=== PATIENT | female | born 1975 | race African-American/Black ===

== ENCOUNTER → 2016-09-04 | Outpatient (REF) | payer BC, OTHER | LOC: M SFHCPLAZ 09:50 | PROVIDERS: ATTEND Family Medicine | DX: E03.9 Hypothyroidism, unspecified (principal) ==

== ENCOUNTER → 2017-01-03 | Outpatient (CLI) | payer BC, OTHER ==
--- NOTE | 2017-01-03 14:00 | REP ---
Digital diagnostic bilateral mammography with CAD and focused left breast sonography: History: Left breast lump at 9 o'clock for the last 8 days. Patient is status post augmentation. Comparison mammography December 01, 2012. Mammographic findings: Implant included and implant displaced views of each breast were obtained. A skin marker is affixed to the skin at the site of the palpable lump on the left and left breast views are augmented by magnified focal spot compression images. Scattered fibroglandular elements are seen in a pattern which is felt to be unchanged from the 2013 prior mammogram. No neodensity, architectural distortion, or microcalcification is observed. No mass lesion is seen in the area of the palpable lump. Sonographic findings: The left breast is scanned from 6 clock to 11 o'clock. The patient reports a palpable lump at 6 o'clock and the doctor four a lump at 11 o'clock. Heterogeneous fibroglandular background echotexture is seen. At 6 o'clock there is a 4 x 3 x 4 mm simple cyst 2.2 cm from the nipple which is felt to account for the patient's palpable abnormality. Impression: BI-RADS/ACR category 2 mammogram. Benign finding(s). Routine annual screening mammography (for women over age 40). BIRADS category 2 benign bilateral breast imaging. Repeat screening mammography recommended in 1 year. This negative report should not dissuade one from biopsy of a palpable lump depending on its clinical characteristics. Clinical follow-up is advised. This mammogram was interpreted with the aid of an FDA-approved computer-aided detection system. The patient states she/he had a clinical breast exam in December 2016. The patient letter being requested is M2. Signed by Merritt Canales MD 01/03/2017 04:49 P
== END ==
LOC: M RAD 10:22
PROVIDERS: ATTEND Family Medicine
DX: N60.02 Solitary cyst of left breast (principal); Z98.890 Other specified postprocedural states
CPT/HCPCS: 76642; G0204

== ENCOUNTER → 2017-02-26 | Outpatient (REF) | payer BC, OTHER | LOC: M SFHCLERA 16:41 | DX: E03.9 Hypothyroidism, unspecified (principal) ==

== ENCOUNTER → 2017-02-27 | Outpatient (REF) | payer OTHER | LOC: M SFHCLERA 07:54 | DX: E03.9 Hypothyroidism, unspecified (principal) | CPT/HCPCS: 84443 ==

== ENCOUNTER → 2017-03-04 | Outpatient (REF) | payer OTHER ==
[2017-03-04 12:45] LABS: TOTAL 25(OH) VITAMIN D 32.4 NG/ML (30.0-100.0)
== END ==
LOC: M SFHCPLAZ 09:13
DX: Z86.39 Personal history of other endocrine, nutritional and metabolic disease (principal)
CPT/HCPCS: 82306

== ENCOUNTER → 2017-03-27 | Outpatient (REF) | payer OTHER | LOC: M SFHCLERA 20:04 | DX: J02.9 Acute pharyngitis, unspecified (principal) ==

== ENCOUNTER → 2017-04-07 | Outpatient (CLI) | payer OTHER | LOC: M RAD 09:59 | DX: E04.1 Nontoxic single thyroid nodule (principal) | CPT/HCPCS: 76536 ==

== ENCOUNTER → 2017-04-22 | Outpatient (REF) | payer OTHER ==
[2017-04-22 12:13] LABS: FREE T4 1.45 NG/DL (0.76-1.46); THYROID STIMULATING HORMONE 0.442 uIU/ML (0.358-3.740)
== END ==
LOC: M SFHCPLAZ 08:44
DX: Z86.39 Personal history of other endocrine, nutritional and metabolic disease (principal)

== ENCOUNTER → 2017-05-01 | Outpatient (REF) | payer OTHER | LOC: M LAB REF 17:29 | DX: E04.1 Nontoxic single thyroid nodule (principal) | CPT/HCPCS: 88173 ==

== ENCOUNTER → 2017-05-24 | Outpatient (REF) | payer OTHER | LOC: M SFHCLERA 14:39 | DX: R50.9 Fever, unspecified (principal) ==

== ENCOUNTER → 2017-06-24 | Outpatient (REF) | payer OTHER ==
[2017-06-24 15:59] LABS: THYROID STIMULATING HORMONE 0.841 uIU/ML (0.358-3.740)
[2017-06-27 00:07] LABS: THYROID STIMULATING IMMUNOGLOB <0.10 IU/L (0.00-0.55)
== END ==
LOC: M LAB REF 15:28
DX: E89.0 Postprocedural hypothyroidism (principal)

== ENCOUNTER → 2017-11-03 | Outpatient (REF) | payer OTHER | LOC: M SFHCLERA 10:09 | DX: J02.9 Acute pharyngitis, unspecified (principal) ==

== ENCOUNTER → 2017-11-24 | Outpatient (CLI) | payer OTHER ==
[2017-11-24 13:40] LABS: BASO % 0.4 % (0.0-1.0); EOS # 0.1 10^3/uL (0.0-0.50); EOS % 0.6 % (0.0-3.0); HEMATOCRIT 41.4 % (36.0-47.0); HEMOGLOBIN 13.7 g/dl (12.0-15.5); IMMATURE GRANULOCYTE % 0.3 % (0-3.0); LYMPH % 32.6 % (24.0-44.0); MEAN CORPUSCULAR HEMOGLOBIN 27.4 pg (27.0-33.0); MEAN CORPUSCULAR HGB CONC 33.1 g/dl (32.0-36.5); MEAN CORPUSCULAR VOLUME 82.8 fl (80.0-96.0); MONO # 0.6 10^3/uL (0.0-0.8); MONO % 6.5 % (0.0-5.0); NEUTROPHILS # 5.4 10^3/uL (1.8-7.7); NEUTROPHILS % 59.6 % (36.0-66.0); PLATELET COUNT, AUTOMATED 346 10^3/uL (150-450); RED CELL DISTRIBUTION WIDTH 13.2 % (11.5-14.5); WHITE BLOOD COUNT 9.1 10^3/uL (4.0-10.0)
== END ==
LOC: M WUC 11:12
DX: R05 Cough (principal)
CPT/HCPCS: 85025

== ENCOUNTER → 2017-11-27 | Outpatient (CLI) | payer OTHER | LOC: M WUC 13:16 | DX: J20.9 Acute bronchitis, unspecified (principal) | CPT/HCPCS: 71046 ==

== ENCOUNTER → 2017-12-26 | Outpatient (REF) | payer OTHER ==
[2017-12-26 17:45] LABS: THYROID STIMULATING HORMONE 0.983 uIU/ML (0.358-3.740)
== END ==
LOC: M SFHCPLAZ 16:15
DX: E03.9 Hypothyroidism, unspecified (principal)
CPT/HCPCS: 84443

== ENCOUNTER → 2018-04-24 | Outpatient (REF) | payer OTHER ==
[2018-04-24 12:59] LABS: FREE T4 1.55 NG/DL (0.76-1.46); THYROID STIMULATING HORMONE 0.125 uIU/ML (0.358-3.740)
== END ==
LOC: M SFHCPLAZ 09:17
PROVIDERS: ATTEND Family Medicine
DX: E03.9 Hypothyroidism, unspecified (principal)

== ENCOUNTER → 2018-06-08 | Outpatient (REF) | payer OTHER ==
[2018-06-08 12:12] LABS: FREE T4 1.01 NG/DL (0.76-1.46); THYROID STIMULATING HORMONE 0.56 uIU/ML (0.358-3.740)
== END ==
LOC: M SFHCPLAZ 08:13
PROVIDERS: ATTEND Family Medicine
DX: E03.9 Hypothyroidism, unspecified (principal)

== ENCOUNTER → 2018-07-22 | Outpatient (REF) | payer OTHER ==
[2018-07-22 11:15] LABS: FREE T4 0.97 NG/DL (0.76-1.46); THYROID STIMULATING HORMONE 7.87 uIU/ML (0.358-3.740)
== END ==
LOC: M SFHCPLAZ 08:13
PROVIDERS: ATTEND Family Medicine
DX: E03.9 Hypothyroidism, unspecified (principal)